=== PATIENT | male | born 1950 | race Caucasian/White ===

== ENCOUNTER 2020-09-21 10:44 | Observation (INO) | payer OTHER, SELFPAY ==
[2020-09-21] VITALS (9 sets, daily range): BP systolic 127–148; BP diastolic 80–94; PULSE 70–96; RESP 14–20; TEMP 36.5–36.7; O2SAT 94–99; BMI 26.4
--- NOTE | 2020-09-21 | CA_ITS ---
APPROVED REPORT Exam: Pharmacologic Technologist: Ene Zapata Ht: 6 ft 0 in Wt: 195 lbs BSA: 2.11 m2 HR: 71 bpm BP: 138/80 mmHg Indications: Syncope Medical History Medications: Amlodipine,,,,, Omeprazole,,,,, Ropinirole,,,,, TAMSULOSIN,,,,, PriMIDONE,,,,, Stress Test Details Test: LEXISCAN HR Resting HR: 78 bpm Max Heart Rate (APMHR): 152 bpm Max HR Achieved: 105 bpm Target HR (85% APMHR): 129 bpm % of APMHR: 69 Recovery HR: 88 bpm BP Resting BP: 138.0/80.0 mmHg Max BP: 140.0/72.0 mmHg Recovery BP: 136.0/72.0 mmHg ECG Clinical Reason for Termination: Completed Protocol Exercise duration: 04:00 min Highest Stage Achieved: Exercise capacity: 1.0 METs Stress ECG Conclusion Resting ECG: Normal sinus rhythm, right bundle branch block Symptoms: None Arrhythmias/Ectopy: Rare PVC, Frequent PAC's, atrial couplets and atrial bigeminy. ST-T Changes: < 1.[address] segment changes. Conclusion: Non-diagnostic lexiscan stress test. Patient received the infusion per protocol without chest pain. Rare PVC, frequent PAC's, atrial couplets and runs of atrial bigeminy noted. Less than 1.[address] segment changes noted during stress. See the nuclear report for further information. Test Summary REST . . . . . . . Resting REST 05:45 . . 78 . 138/ 80 . . Stage 1 . . . . . . . Myoview Injected Stage 1 01:00 . . 100 . . . . Stage 2 01:00 . . 96 . 133/ 75 . . Stage 3 01:00 . . 89 . 140/ 72 . . Stage 4 01:00 . . 88 . 129/ 75 . Stop exercise at 04:00 RECOVERY 01:00 . . 85 . 137/ 65 . . RECOVERY 02:00 . . 90 . 137/ 65 . . RECOVERY 03:00 . . 83 . 137/ 65 . . RECOVERY 04:00 . . 83 . 137/ 65 . . RECOVERY 04:10 . . 79 . 137/ 65 . . Electronically signed by : Sharad De Oliveira, 09/21/2020 20:16:35
--- NOTE | 2020-09-21 10:49 | ECG_ITS ---
APPROVED REPORT Exam: Resting ECG HR:82 bpm ECG Measurements Heart Rate 82 AXES FL 154 P 41 QRSd 136 QRS -35 QT 402 T 16 QTc 469 Conclusion Normal sinus rhythm Left axis deviation Right bundle branch block Moderate voltage criteria for LVH, may be normal variant Inferior infarct, age undetermined Abnormal ECG Electronically signed by : González Reynolds, 09/23/2020 07:51:03
--- NOTE | 2020-09-21 10:54 | XR_ITS ---
PROCEDURE: XR CHEST PORTABLE CLINICAL HISTORY: syncope COMPARISON: CT [facility] CT CHEST W/O CONTRAST from 09/02/2016 FINDINGS: The cardiomediastinal silhouette and pulmonary vascularity are within normal limits. There is a 10 mm noncalcified nodule in the left upper lobe. This was present on a previous chest CT and is consistent with a granuloma. The remaining lungs are clear. No acute bony abnormalities. IMPRESSION: Stable left upper lobe nodule. No change with no acute finding Dictated by: Vargas Alvarenga MD 09/21/2020 11:08 Vargas Alvarenga MD in [place] 09/21/2020 11:08
--- NOTE | 2020-09-21 10:56 | PC.NURSE ---
First EKG given to MD immediately and MD states he does not want to call any Alert at this time and wants to do a repeat EKG in 15 mins. he does not want to consult cardiology at this time.
--- NOTE | 2020-09-21 11:00 | PC.NURSE ---
MD now requests EKG to be sent to cardiology.
--- NOTE | 2020-09-21 11:01 | PC.NURSE ---
RT at bedside
--- NOTE | 2020-09-21 11:02 | PC.NURSE ---
Main here to assess pt
--- NOTE | 2020-09-21 11:03 | PC.NURSE ---
Main Nesbitt at bedside
--- NOTE | 2020-09-21 11:07 | CA_ITS ---
APPROVED REPORT EXAM: Comprehensive 2D, Doppler, and color-flow Echocardiogram Financial Director: Daiana He RDCS Ht: 5 ft 10 in Wt: 195lbs BSA: 2.07 BP: 148/94 mmHg Indications: SYNCOPE, Parkinson, GERD 2D Dimensions LVOT 2.28 cm (M/F) 1.5-2.5 M-Mode Dimensions RVDd 2.65 cm (0.9-2.6) LA Diam 3.87 cm (1.9-4.0) LVDd 5.66 cm (3.5-5.7) Ao Diam 3.55 cm (2.0-3.7) LVDs 3.77 cm (3.5-5.7) IVSd 0.76 cm (0.6-1.1) PWd 0.96 cm (0.6-1.1) EF (Teich) 61.40% FS 33.40% EDV (Teich) 157.50 mL ESV (Teich) 60.80 mL LV Diastology E Decel Time 220.00 (160-240 msec) E/A Ratio 0.71 MED E' 6.80 (< 7 cm/sec) E'/MED E' Ratio 8.00 (>14) LAT E' 5.70 (<10 cm/sec) E/LAT E' Ratio 9.54 (>14) Mitral Valve MV E Max Teofilo. 54.00 (40-130 cm/s) MV A Velocity 77.00 (40-130 cm/s) E/A Ratio 0.71 MV Decel. Time 220.00 (160-240 ms) MV PHT 64.00 ms Left Ventricle Left atrium is mildly enlarged, left ventricle is normal size, mild concentric left ventricular hypertrophy, visually estimated ejection fraction 55% with no regional wall motion abnormality, grade 1 diastolic dysfunction seen without tissue Doppler evidence of raise left atrial pressure. Right Ventricle Right atrium and right ventricle are normal size and contractility. Aortic Valve Aortic valve is minimally thickened and fibrosed, there is no aortic stenosis or aortic insufficiency. Mitral Valve Mitral valve is minimally thickened, there is mild mitral regurgitation. Tricuspid Valve Tricuspid valve is grossly normal, there is mild tricuspid regurgitation, tricuspid regurgitation jet velocity is inadequate for calculation of the right ventricular systolic pressure. Pulmonic Valve Pulmonic valve is poorly visualized. Great Vessels Aortic root is normal size. Pericardium No significant pericardial effusion noted. Conclusion 1. Mildly enlarged left atrium, normal left ventricular size, mild concentric left ventricular hypertrophy, visually estimated ejection fraction 55% with no regional wall motion abnormality. Grade 1 diastolic dysfunction seen without tissue Doppler evidence of raise left atrial pressure. 2. Thickened and calcified aortic valve without aortic stenosis or aortic insufficiency. 3. Mild mitral and tricuspid regurgitation. 4. No significant pericardial effusion noted. Electronically signed by : Sharad De Oliveira, 09/21/2020 18:55:54
--- NOTE | 2020-09-21 11:09 | PC.NURSE ---
New EKG obtained, given to Main Nesbitt that is at bedside, no new orders obtained.
[2020-09-21 11:15] LABS: Chloride 100 mmol/L (98-107); Potassium 4.1 mmoL/L (3.5-5.1); Sodium 138 mmol/L (136-145)
--- NOTE | 2020-09-21 11:15 | HMH.EDSYNC ---
ED Disposition Clinical Impression: Syncope Qualifiers: Syncope type: unspecified Qualified Code(s): R55 - Syncope and collapse Disposition: Admitted As Inpatient Condition on Discharge: Good Instructions: DI for Syncope in Adults (Fainting), DI for Syncope in Children (Fainting) Referrals: Jaime Adler MD [Primary Care Provider] - - Critical Care Critical Care Time: No Attestation: On 09/21/20, the high probability of a clinically significant, sudden or life threatening deterioration of the following system(s) required my full and direct attention, intervention and personal management. The time I documented below is in addition to time spent performing reported procedures but includes the following listed in this critical care notation. Medical Decision Making - Medical Records Medical records reviewed: Yes: I reviewed the patient's medical records. - Benjamin Inquiry Pt receiving controlled substance: No Vital Signs: 09/21/20 10:50 09/21/20 11:12 Temperature 98.1 F Temperature Source Oral Pulse Rate [Radial] 77 96 H Respiratory Rate 18 14 Blood Pressure [Right Arm] 128/81 148/94 H Blood Pressure Mean [Right Arm] 96 112 Blood Pressure Source [Right Arm] Automatic Cuff Automatic Cuff Blood Pressure Position [Right Arm] Sitting Sitting 02 Sat by Pulse Oximetry 96 97 Oxygen Delivery Method Room Air Room Air - Lab Data Lab Results 09/21/20 10:55: WBC 7.1, RBC 3.91 L, Hgb 13.8 L, Hct 36.2 L, MCV 92.7, MCH 35.4 H, MCHC 38.2 H, RDW 13.4, Plt Count 230, MPV 7.3 L, Neut % (Auto) 77.4, Lymph % (Auto) 15.5, Nash % (Auto) 5.3, Eos % (Auto) 1.3, Baso % (Auto) 0.6, Neut # (Auto) 5.5, Lymph # (Auto) 1.1, Nash # (Auto) 0.4, Eos # (Auto) 0.1, Baso # (Auto) 0.0 09/21/20 10:55: Sodium 138, Potassium 4.1, Chloride 100, Carbon Dioxide 29, Anion Gap 13.1, BUN 13, Creatinine 0.90, Estimated Creat Clear 88, Estimated GFR 84, Est GFR ( Amer) 102, Glucose 171 H, Calcium 9.6, Total Bilirubin 0.4, AST 25, ALT 25, Alkaline Phosphatase 49, Troponin I < 0.01, Total Protein 8.0, Albumin 4.7, Globulin 3.3 H, Albumin/Globulin Ratio 1.4 09/21/20 10:55: PT 11.0, INR 0.99, APTT 22.2 L Result diagrams: 09/21/20 10:55 09/21/20 10:55 Orders (Tests/Meds): ED MEDICATIONS Discontinued Medications Generic Name Dose Route Start Last Admin Trade Name Augustin PRN Reason Stop Dose Admin Aspirin 324 mg 09/21/20 11:00 09/21/20 11:02 Aspirin 81mg Chewable Tablet PO 09/21/20 11:01 324 mg ONCE ONE Administration ORDERS Category Date Time Status Troponin I Q3H Lab 09/21/20 14:00 Ordered Troponin I Q3H Lab 09/21/20 17:00 Ordered Medical Decision Narrative: 70-year-old male presenting after syncopal episode. Nontoxic, afebrile, hemodynamically stable, nonfocal, neuro intact, atraumatic on arrival. Asymptomatic on arrival. EKG showed left axis deviation, right bundle branch block but no evidence of acute ischemia. Cardiology was consulted immediately on patient's arrival and evaluate the patient in the ED and ordered an echo which was also negative for acute disease including wall motion abnormality or valvular disease. He appears to have a preserved ejection fraction. His initial troponin is undetectable. Blood cell count, glucose, electrolytes, transaminases are nonactionable. Chest x-ray is negative for acute disease. I spoke with the PCP who agreed to admit the patient other work-up and management and cardiology will consult. Patient remained stable in the ED. Syncope HPI - General Chief Complaint: Syncope Stated Complaint: Syncope Time Seen by Provider: 09/21/20 11:00 Mode of Arrival: Ambulatory Limitations: No Limitations Description of Symptoms (Recalled from ER Triage Doc. by RN): States while in the kitchen this morning he got sweaty and then passed out. He currently just feels off - History of Present Illness HPI narrative: This is a 70-year-old male with a history of Parkinson's diseas
--- NOTE | 2020-09-21 11:17 | PC.NURSE ---
Echo lab at bedside
[2020-09-21 11:18] LABS: Alanine Aminotransferase 25 U/L (12-78); Albumin Level 4.7 g/dl (3.5-5.0); Albumin/Globulin Ratio 1.4 (1.1-1.8); Alkaline Phosphatase 49 U/L (38-126); Anion Gap 13.1 mEq/L (5-15); Aspartate Amino Transferase 25 U/L (17-59); Bilirubin,Total 0.4 mg/dl (0.2-1.3); Blood Urea Nitrogen 13 mg/dl (9-20); Calcium 9.6 mg/dl (8.4-10.2); Carbon Dioxide 29 mmol/L (22.0-30.0); Creatinine Clearance Estimated 88 mL/min (50-200); Estimated Glomerular Filt Rate 84 ml/min (>60); GFR (African American) 102 ML/MIN (>60); Globulin 3.3 g/dL (1.3-3.2); Glucose 171 mg/dl (74-100)
[2020-09-21 11:28] LABS: Basophils % 0.6 % (0.1-2.0); Eosinophils # 0.1 K/mm3 (0.0-0.4); Eosinophils % 1.3 % (0.1-12.0); Hematocrit 36.2 % (42.0-52.0); Hemoglobin 13.8 g/dL (14.1-18.0); Lymphocytes # 1.1 K/mm3 (0.7-4.5); Lymphocytes % 15.5 % (10-50); Mean Corpuscular HGB Conc 38.2 g/dL (31.8-35.4); Mean Corpuscular Hemoglobin 35.4 pg (27.0-31.2); Mean Corpuscular Volume 92.7 fl (80-94); Mean Platelet Volume 7.3 fl (7.4-10.4); Monocytes # 0.4 K/mm3 (0.1-1.0); Monocytes % 5.3 % (1.7-9.3); Neutrophils # 5.5 K/mm3 (1.8-7.8); Neutrophils % 77.4 % (37.0-80.0); Platelet Count 230 K/mm3 (142-424); Red Blood Count 3.91 M/mm3 (4.60-6.20); Red Cell Distribution Width 13.4 % (11.5-17.5); White Blood Count 7.1 K/mm3 (4.8-10.8)
--- NOTE | 2020-09-21 11:31 | HMH.CNCARD ---
History of Present Illness Consult date: 09/21/20 Chief complaint: syncope Additional Medical History:: 1. Hypertension 2. Parkinson's disease 3. Bifascicular block by EKG, 09/21/2020 A. Syncopal episode, 09/21/2020 4. History of GERD History of present illness: This is a 70-year-old male with a history of Parkinson's disease and hypertension presenting after syncopal episode that occurred at approximately 8 AM. Patient states he was walking in the kitchen when he felt lightheaded, diaphoretic and that he was going to pass out and shortly thereafter passed out in his living room. No head strike or injuries. On arrival, patient is essentially asymptomatic. No fever, chills, cough, shortness of breath, chest pain, palpitations, focal weakness, numbness, tingling. This has happened before. The above per Dr. Alejandro in ER. No prior cardiac history. Denies history of tobacco use. He was recently started on Flomax approximately 4 to 6 weeks ago without difficulty. Patient has Parkinson's and has been on medication for over a year without problems. EKGs in the ER shows sinus rhythm, left axis deviation, right bundle branch block, moderate voltage criteria for LVH and possible inferior infarct. No prior EKGs for comparison and patient has no prior history of a bundle branch block. [facility] History Medical History: Reports:: Hypertension Denies:: Cancer, Diabetes Mellitus Type 1, Diabetes Mellitus Type 2, Internal Pacemaker, MRSA, Seizures *Have you ever received a pneumonia vaccine?: Yes *Have you received a flu vaccine this season?: Yes Other Surgeries: No: Pacemaker Amputation: No Fractures: No - *Social History Smoking Status: Never smoker Alcohol Intake: never *Occupational Status:: other Housing: house Household Members: spouse *Travel in the last 8 weeks: None Family Hx:: No significant family history Meds Home Medications Medication Instructions Recorded Confirmed Type Amlodipine Besylate [Norvasc 10mg 5 mg PO DAILY 11/08/19 09/21/20 History tablet] Omeprazole [Omeprazole 20mg 20 mg PO DAILY 11/08/19 09/21/20 History Capsule] Primidone [Mysoline 50mg tablet] 50 mg PO DAILY 09/21/20 09/21/20 History Ropinirole HCl [Ropinirole ER] 2 mg PO BID 09/21/20 09/21/20 History Allergies Allergy/AdvReac Type Severity Reaction Status Date / Time No Known Allergies Allergy Verified 11/08/19 07:32 Exam Vital signs and Labs for Last 24 Hours: Temp Pulse Resp BP Pulse Ox 98.1 F 96 H 14 148/94 H 97 09/21/20 10:50 09/21/20 11:12 09/21/20 11:12 09/21/20 11:12 09/21/20 11:12 Laboratory Results - last 24 hr 09/21/20 10:55: WBC 7.1, RBC 3.91 L, Hgb 13.8 L, Hct 36.2 L, MCV 92.7, MCH 35.4 H, MCHC 38.2 H, RDW 13.4, Plt Count 230, MPV 7.3 L, Neut % (Auto) 77.4, Lymph % (Auto) 15.5, Armstrong % (Auto) 5.3, Eos % (Auto) 1.3, Baso % (Auto) 0.6, Neut # (Auto) 5.5, Lymph # (Auto) 1.1, Armstrong # (Auto) 0.4, Eos # (Auto) 0.1, Baso # (Auto) 0.0 09/21/20 10:55: Sodium 138, Potassium 4.1, Chloride 100, Carbon Dioxide 29, Anion Gap 13.1, BUN 13, Creatinine 0.90, Estimated Creat Clear 88, Estimated GFR 84, Est GFR ( Amer) 102, Glucose 171 H, Calcium 9.6, Total Bilirubin 0.4, AST 25, ALT 25, Alkaline Phosphatase 49, Total Protein 8.0, Albumin 4.7, Globulin 3.3 H, Albumin/Globulin Ratio 1.4 I & O for Last 24 hours: Intake & Output 09/18/20 09/19/20 09/20/20 09/21/20 11:59 11:59 11:59 11:59 Weight 195 lb - Constitutional no acute distress - *Routine HEENT Exam Head: Present: normocephalic Eye: Present: EOMI, PERRL ENT: Present: mucous membranes moist - *Routine Neck Exam Present: supple. Absent: lymphadenopathy - *Routine Respiratory Exam Present: CTA bilaterally - *Routine Cardiovascular Exam Present: RRR - *Routine Abdominal Exam Present: soft, normoactive bowel sounds. Absent: tenderness - *Routine Extremities Exam Absent: cyanosis, clubbing, edema - *Routine Skin Exam
[2020-09-21 11:32] LABS: Activated Partial Thrombo Time 22.2 seconds (23.6-34.0); INR 0.99 (0.9-1.1); Troponin I < 0.01 ng/ml (0.00-0.034)
--- NOTE | 2020-09-21 11:36 | PC.NURSE ---
Calling pt's PCP at this time.
--- NOTE | 2020-09-21 11:37 | PC.NURSE ---
KIESHA SMITH speaking with Dr Reynolds at this time.
--- NOTE | 2020-09-21 11:42 | PC.NURSE ---
Dr Rees at bedside at this time.
--- NOTE | 2020-09-21 11:46 | NM_ITS ---
APPROVED REPORT Exam: Nuclear Stress Test Indication: Syncope, HTN Patient Location: Outpatient Stress Tech: Ene Zapata RI Tech:Sarah Arora, ARRT, RT (R)(N) Ht: 6 ft 0 in Wt: 190 lbs HR: 71 bpm BP: 138/80 mmHg BSA: 2.08 m2 History: Syncope, HTN Procedure: Patient received a 0.4 mg of intravenous Lexiscan, resting heart rate 71 bpm, resting blood pressure 138/80 mmHg, with Lexiscan maximum heart rate achived was 99 bpm which is Less than 85 % of the maximum predicted heart rate and blood pressure was 133/75 mmHg. With Lexiscan, patient denied any complaint of chest pain. Electrocardiogram Resting electrocardiogram showed sinus rhythm right ventricular conduction delay, with Lexiscan there is less than 1.[address] segment depression noted from the baseline EKG. The EKG portion of the Lexiscan Myoview is nondiagnostic. Cardiac Stress and Resting SPECT Images: Cardiac Stress and Resting SPECT images were obtained using technetium 99m Myoview 32.6 mCi stress and 10.23 mCi at rest. Gated SPECT for analysis of segmental wall motion and calculation of the ejection fraction also done. Cardiac stress and resting SPECT images show uniform myocardial activity without segmental perfusion abnormality, however there is transient ischemic dilatation of the left ventricle seen, raising the concerns for presence of balanced ischemia and multivessel coronary artery disease. Computer derived ejection fraction is 57% with no regional wall motion abnormality. Right ventricle is mildly enlarged with normal contractility. Conclusion: 1. The EKG portion of the Lexiscan Myoview is nondiagnostic. 2. No scintigraphic evidence of reversible ischemia seen, computer derived ejection fraction is 57% with no regional wall motion abnormality, however there is transient ischemic dilatation of the left ventricle seen, raising the concerns for presence of balanced ischemia or multivessel coronary artery disease. Right ventricle is mildly enlarged with normal contractility. 3. Abnormal Lexiscan Myoview study. Electronically signed by : Sharad De Oliveira, 09/21/2020 21:15:18
--- NOTE | 2020-09-21 12:17 | PC.NURSE ---
Gave report to Kathy on 2nd floor, notified pt was in stress test at this time and will be transported to 2nd floor when completed
--- NOTE | 2020-09-21 12:33 | HMH.PHAINT ---
HOME MEDICATION LIST COMPLETED USING LIST FROM HOME PHARMACY
[2020-09-21 13:01] LABS: Coronavirus 19 IgG Antibody Negative (Negative); Coronavirus 19 IgM Antibody Negative (Negative)
[2020-09-21 15:23] LABS: Troponin I < 0.01 ng/ml (0.00-0.034)
--- NOTE | 2020-09-21 16:00 | ECG_ITS ---
APPROVED REPORT Exam: Resting ECG HR:72 bpm ECG Measurements Heart Rate 72 AXES AK 160 P 41 QRSd 146 QRS -16 QT 434 T 12 QTc 475 Conclusion Sinus rhythm with fusion complexes and premature atrial complexes Right bundle branch block Abnormal ECG Electronically signed by : González Reynolds, 09/23/2020 07:50:56
--- NOTE | 2020-09-21 16:08 | PC.NURSE ---
Addendum entered by Kathy Brizuela RN 09/21/20 16:15: ER STATED NO CHANGE FROM PREVIOUS EKG Original Note: UPON READING TELEMETRY ALMOST APPEARED PATIENT COULD HAVE SOME ST ELEVATION SO EKG WAS OBTAINED AND TAKEN DOWN TO ER TO BE READ.
--- NOTE | 2020-09-21 17:14 | HMH.HP ---
*Admission Date: 09/21/20 *Chief complaint: Near syncope *History of present illness: This is a 70-year-old male with a history of Parkinson's disease and hypertension presenting after syncopal episode that occurred at approximately 8 AM. Patient states he was walking in the kitchen when he felt lightheaded, diaphoretic and that he was going to pass out and shortly thereafter passed out in his living room. No head strike or injuries. On arrival, patient is essentially asymptomatic. No fever, chills, cough, shortness of breath, chest pain, palpitations, focal weakness, numbness, tingling. This has happened before. The above per Dr. Alejandro in ER. No prior cardiac history. Denies history of tobacco use. He was recently started on Flomax approximately 4 to 6 weeks ago without difficulty. Patient has Parkinson's and has been on medication for over a year without problems. EKGs in the ER shows sinus rhythm, left axis deviation, right bundle branch block, moderate voltage criteria for LVH and possible inferior infarct. No prior EKGs for comparison and patient has no prior history of a bundle branch block. Above Per cardiology. Patient is not sure he actually passed out, does note that he was very fuzzy headed and had tunnel vision. Denies any kind of mechanical trip, denies chest pain. Denies palpitations. [facility] History I have reviewed the patient's past medical history: Yes Medical History: Reports:: Gastroesophageal Reflux Disease(GERD), Hypertension Denies:: Cancer, Diabetes Mellitus Type 1, Diabetes Mellitus Type 2, Internal Pacemaker, MRSA, Seizures *Have you ever received a pneumonia vaccine?: Yes *Have you received a flu vaccine this season?: Yes Comment:: Parkinson's disease, follows with Dr. Vela in [place] Laterality Cases: Bilateral: Tonsillectomy Other Surgeries: No: Pacemaker Amputation: No Fractures: No - *Social History Last grade of school completed: Advanced degree Smoking Status: Never smoker Alcohol Intake: never *Occupational Status:: retired Housing: house Household Members: spouse *Travel in the last 8 weeks: None Family Hx:: Cancer, Heart Attack, Hyperlipidemia, Hypertension Review of Systems - Review of Systems Review of systems:: pertinent systems reviewed and negative unless documented below - *Neurologic Reports dizziness, Reports weakness Meds Home Medications Medication Instructions Recorded Confirmed Type Amlodipine Besylate [Norvasc 10mg 5 mg PO DAILY 11/08/19 09/21/20 History tablet] Omeprazole [Omeprazole 20mg 20 mg PO DAILY 11/08/19 09/21/20 History Capsule] Primidone [Mysoline 50mg tablet] 50 mg PO BID 09/21/20 09/21/20 History Ropinirole HCl [Ropinirole ER] 2 mg PO BID 09/21/20 09/21/20 History Tamsulosin HCl [Flomax 0.4mg 0.4 mg PO HS 09/21/20 09/21/20 History capsule] Allergies Allergy/AdvReac Type Severity Reaction Status Date / Time No Known Allergies Allergy Verified 11/08/19 07:32 Exam Vital signs and Labs for Last 24 Hours: Temp Pulse Resp BP Pulse Ox 98.0 F 80 18 142/81 H 98 09/21/20 16:00 09/21/20 16:00 09/21/20 16:00 09/21/20 16:00 09/21/20 16:00 Laboratory Results - last 24 hr 09/21/20 10:55: WBC 7.1, RBC 3.91 L, Hgb 13.8 L, Hct 36.2 L, MCV 92.7, MCH 35.4 H, MCHC 38.2 H, RDW 13.4, Plt Count 230, MPV 7.3 L, Neut % (Auto) 77.4, Lymph % (Auto) 15.5, [place]ah % (Auto) 5.3, Eos % (Auto) 1.3, Baso % (Auto) 0.6, Neut # (Auto) 5.5, Lymph # (Auto) 1.1, [place]ah # (Auto) 0.4, Eos # (Auto) 0.1, Baso # (Auto) 0.0 09/21/20 10:55: Sodium 138, Potassium 4.1, Chloride 100, Carbon Dioxide 29, Anion Gap 13.1, BUN 13, Creatinine 0.90, Estimated Creat Clear 88, Estimated GFR 84, Est GFR ( Amer) 102, Glucose 171 H, Calcium 9.6, Total Bilirubin 0.4, AST 25, ALT 25, Alkaline Phosphatase 49, Troponin I < 0.01, Total Protein 8.0, Albumin 4.7, Globulin 3.3 H, Albumin/Globulin Ratio 1.4 10/26/20 10:55: PT 11.0, INR 0.99, APTT 22.2 L 09/21/20 11:59:
[2020-09-21 17:45] LABS: Troponin I < 0.01 ng/ml (0.00-0.034)
--- NOTE | 2020-09-21 18:44 | PC.NURSE ---
patient has done well. no complaints. vitals have been stable will continue to monitor.
--- NOTE | 2020-09-21 19:12 | PC.NURSE ---
report given to anna
[2020-09-22] VITALS (16 sets, daily range): BP systolic 113–155; BP diastolic 59–98; PULSE 65–94; RESP 14–20; TEMP 36.5–36.9; O2SAT 91–98; BMI 26.4
--- NOTE | 2020-09-22 | IR_ITS ---
APPROVED REPORT Patient Location: Inpatient Rehabilitation Attendant: BOB Ratliff RT (R) PROCEDURES Left heart catheterization Left ventriculogram Selective coronary angiogram Drug-eluting stent deployment to the mid LAD INDICATION High risk abnormal Myoview, Coronary artery disease, Cardiac syncope Informed consent was obtained prior to the procedure. COMPLICATIONS none Estimated Blood Loss: less than 10 mls TECHNIQUE One percent lidocaine used to anesthetize the right anterior aspect of the wrist. The right radial artery was accessed via the Seldinger technique. A 6 [place] sheath was placed in the right radial artery. 2.5 mg of verapamil, 800 mcg of nitroglycerin, 1mg Lidocaine and 5000 U Heparin were given through the arterial sheath. The [place] catheter was also used to perform left heart catheterization, left ventriculogram and selective coronary angiogram. At the end of the diagnostic angiogram additional therapeutic heparin was administered giving a therapeutic ACT. A BMW wire was placed distally and a 3.5 x 22 mm resolute celso stent was deployed at 15 natasha reducing the stenosis. A 3.5 x 6 mm noncompliant balloon was deployed at 24 natasah up and down the stent in order to post dilate. At the end of the procedure excellent angiographic results were obtained with MICHELLE-3 flow before and after the procedure. At the end of the procedure the apparatus was removed the sheath was removed good hemostasis was achieved using TR banding patient was transferred to the postop holding area in stable condition ANGIOGRAPHIC RESULTS The left main artery Has an ostial 10% stenosis The left anterior descending artery Has an ostial 10% stenosis followed by mild proximal vascular ectasia which extends into the mid segment. The mid vessel then has a 50% stenosis followed by a hazy concentric 70% stenosis. Distally in the LAD as it wraps the apex there is a 40% eccentric stenosis The circumflex artery Gives rise to a large caliber ramus intermedius which supplies a large amount of myocardium which has mid vessel 20% stenoses. The true circumflex artery has a proximal 30 to 40% stenosis followed by mid vessel 30% stenosis. Terminal obtuse marginal artery has proximal 30% stenoses The right coronary artery Is a dominant vessel and has mild 10% luminal irregularities The HURTADO ventriculogram reveals Normal at 65% The left ventricular end-diastolic pressure 10 mmHg IMPRESSION Severe mid LAD stenosis as described above with successful percutaneous revascularization reducing the severe tandem lesions to 0% with 1 drug-eluting stent in a contiguous manner Mild vascular ectasia in the proximal to mid LAD as described above which is clinically insignificant at this time Normal ejection fraction Normal left ventricular end-diastolic pressure PLAN 1. Effient 10 mg daily combined with aspirin 81 mg daily 2. LDL less than 55 3. Cardiac rehabilitation 4. Avoidance of tobacco products 5. Risk factor modification Electronically signed by : Fran Rees, 09/22/2020 10:56:20
--- NOTE | 2020-09-22 04:00 | PC.NURSE ---
Pt is A&Ox4 and has ambulated to the BR a few times this shift and tolerated well. Pt has denied any pain, SOB, dyspnea, or dizziness/lightheadedness t/o shift. Pt slept well t/o the night. Lungs CTA. No edema noted and peripheral pulses +2. Pt denies any nausea. ABD is soft, non-tender, and active BS noted. NSR with occ PAC/PVC noted on tele. VSS, call light within reach, will continue to monitor.
[2020-09-22 07:28] LABS: Chloride 102 mmol/L (98-107); Sodium 137 mmol/L (136-145)
[2020-09-22 07:29] LABS: Potassium 4.2 mmoL/L (3.5-5.1)
[2020-09-22 07:30] LABS: Basophils # 0.1 K/mm3 (0-0.2); Eosinophils # 0.3 K/mm3 (0.0-0.4); Eosinophils % 3.7 % (0.1-12.0); Hematocrit 43.7 % (42.0-52.0); Hemoglobin 14.8 g/dL (14.1-18.0); Lymphocytes # 2.1 K/mm3 (0.7-4.5); Lymphocytes % 29.2 % (10-50); Mean Corpuscular HGB Conc 33.9 g/dL (31.8-35.4); Mean Corpuscular Hemoglobin 30.5 pg (27.0-31.2); Mean Corpuscular Volume 89.9 fl (80-94); Mean Platelet Volume 7.1 fl (7.4-10.4); Monocytes # 0.5 K/mm3 (0.1-1.0); Monocytes % 6.5 % (1.7-9.3); Neutrophils # 4.3 K/mm3 (1.8-7.8); Neutrophils % 59.5 % (37.0-80.0); Platelet Count 300 K/mm3 (142-424); Red Blood Count 4.86 M/mm3 (4.60-6.20); Red Cell Distribution Width 13.2 % (11.5-17.5); White Blood Count 7.3 K/mm3 (4.8-10.8)
[2020-09-22 07:31] LABS: Alanine Aminotransferase 27 U/L (12-78); Albumin Level 4.4 g/dl (3.5-5.0); Albumin/Globulin Ratio 1.4 (1.1-1.8); Alkaline Phosphatase 47 U/L (38-126); Anion Gap 14.2 mEq/L (5-15); Aspartate Amino Transferase 25 U/L (17-59); Bilirubin,Total 0.5 mg/dl (0.2-1.3); Blood Urea Nitrogen 10 mg/dl (9-20); Carbon Dioxide 25 mmol/L (22.0-30.0); Creatinine Clearance Estimated 88 mL/min (50-200); Estimated Glomerular Filt Rate 84 ml/min (>60); GFR (African American) 102 ML/MIN (>60); Globulin 3.2 g/dL (1.3-3.2); Total Protein,Serum 7.6 g/dl (6.3-8.2)
[2020-09-22 07:32] LABS: Calcium 9.2 mg/dl (8.4-10.2); Glucose 136 mg/dl (74-100)
--- NOTE | 2020-09-22 07:38 | HMH.PNCARD ---
Subjective Date: 09/22/20 Time: 07:38 Principal diagnosis: Syncope Interval history: 70-year-old white male in bed eating breakfast in no acute distress. Denies any chest pain, pressure or tightness overnight. Review of telemetry shows no significant arrhythmias with occasional PACs and PVCs. Results of Lexiscan Myoview reviewed with patient showing evidence of transient ischemic dilatation with normal ejection fraction. Discussed recommendation for cardiac catheterization and patient is agreeable. Patient denies any recurrent episodes of near syncope or syncope overnight. Exam Vital signs and Labs for Last 24 Hours: Temp Pulse Resp BP Pulse Ox 98.5 F 82 18 133/93 H 96 09/22/20 07:15 09/22/20 07:15 09/22/20 07:15 09/22/20 07:15 09/22/20 07:15 Laboratory Results - last 24 hr 09/21/20 10:55: WBC 7.1, RBC 3.91 L, Hgb 13.8 L, Hct 36.2 L, MCV 92.7, MCH 35.4 H, MCHC 38.2 H, RDW 13.4, Plt Count 230, MPV 7.3 L, Neut % (Auto) 77.4, Lymph % (Auto) 15.5, [place] % (Auto) 5.3, Eos % (Auto) 1.3, Baso % (Auto) 0.6, Neut # (Auto) 5.5, Lymph # (Auto) 1.1, [place] # (Auto) 0.4, Eos # (Auto) 0.1, Baso # (Auto) 0.0 09/21/20 10:55: Sodium 138, Potassium 4.1, Chloride 100, Carbon Dioxide 29, Anion Gap 13.1, BUN 13, Creatinine 0.90, Estimated Creat Clear 88, Estimated GFR 84, Est GFR ( Amer) 102, Glucose 171 H, Calcium 9.6, Total Bilirubin 0.4, AST 25, ALT 25, Alkaline Phosphatase 49, Troponin I < 0.01, Total Protein 8.0, Albumin 4.7, Globulin 3.3 H, Albumin/Globulin Ratio 1.4 09/21/20 10:55: PT 11.0, INR 0.99, APTT 22.2 L 09/21/20 11:59: SARS-CoV-2 IgG Ab (Rapid) Negative, SARS-CoV-2 IgM Ab (Rapid) Negative 09/21/20 14:50: Troponin I < 0.01 09/21/20 15:05: Troponin I < 0.01 09/22/20 07:03: WBC 7.3, RBC 4.86, Hgb 14.8, Hct 43.7, MCV 89.9, MCH 30.5, MCHC 33.9, RDW 13.2, Plt Count 300 D, MPV 7.1 L, Neut % (Auto) 59.5, Lymph % (Auto) 29.2, [place] % (Auto) 6.5, Eos % (Auto) 3.7, Baso % (Auto) 1.0, Neut # (Auto) 4.3, Lymph # (Auto) 2.1, [place] # (Auto) 0.5, Eos # (Auto) 0.3, Baso # (Auto) 0.1 09/22/20 07:03: Sodium 137, Potassium 4.2, Chloride 102, Carbon Dioxide 25, Anion Gap 14.2, BUN 10, Creatinine 0.90, Estimated Creat Clear 88, Estimated GFR 84, Est GFR ( Amer) 102, Glucose 136 H D, Calcium 9.2, Total Bilirubin 0.5, AST 25, ALT 27, Alkaline Phosphatase 47, Total Protein 7.6, Albumin 4.4, Globulin 3.2, Albumin/Globulin Ratio 1.4 I & O for Last 24 hours: Intake & Output 09/19/20 09/20/20 09/21/20 09/22/20 11:59 11:59 11:59 11:59 Intake Total 350 / 350 Balance 350 / 350 Weight 195 lb 195 lb - *Routine HEENT Exam Head: Present: normocephalic Eye: Present: EOMI, PERRL ENT: Present: mucous membranes moist - *Routine Respiratory Exam Present: CTA bilaterally - *Routine Cardiovascular Exam Present: RRR - *Routine Extremities Exam Absent: cyanosis, clubbing, edema - *Routine Neurological Exam Present: alert, oriented X3 Progress Note: A&P (1) Syncope Status: Acute (2) Hypertension Status: Acute (3) Parkinsons disease Status: Acute (4) GERD without esophagitis Status: Acute Assessment and Plan for All Diagnoses:: 1. Abnormal stress test with evidence of transient ischemic dilatation. Recommendation for cardiac catheterization to evaluate for balanced ischemia/three-vessel disease. If cardiac catheterization is without significant blockages then higher likelihood that patient needs pacemaker due to syncope and bifascicular block. 2. Episode of syncope with abnormal EKG with bifascicular block. 3. Parkinson's disease 4. Hypertension with echocardiogram this admission showing preserved ejection fraction with mild hypertensive heart disease and grade 1 diastolic dysfunction. Pending results of cardiac catheterization will start blood pressure medication. [facility] Pre-cath Criteria Clinical evaluation and indication for coronary angiography: syncope Clinical risk factors:: HTN How many antiang
--- NOTE | 2020-09-22 11:22 | HMH.DCSUM ---
General - General Admission date:: 09/21/20 Discharge date: 09/22/20 HPI HPI: This is a 70-year-old male with a history of Parkinson's disease and hypertension presenting after syncopal episode that occurred at approximately 8 AM. Patient states he was walking in the kitchen when he felt lightheaded, diaphoretic and that he was going to pass out and shortly thereafter passed out in his living room. No head strike or injuries. On arrival, patient is essentially asymptomatic. No fever, chills, cough, shortness of breath, chest pain, palpitations, focal weakness, numbness, tingling. This has happened before. The above per Dr. Alejandro in ER. No prior cardiac history. Denies history of tobacco use. He was recently started on Flomax approximately 4 to 6 weeks ago without difficulty. Patient has Parkinson's and has been on medication for over a year without problems. EKGs in the ER shows sinus rhythm, left axis deviation, right bundle branch block, moderate voltage criteria for LVH and possible inferior infarct. No prior EKGs for comparison and patient has no prior history of a bundle branch block. Above Per cardiology. Patient is not sure he actually passed out, does note that he was very fuzzy headed and had tunnel vision. Denies any kind of mechanical trip, denies chest pain. Denies palpitations. Hospital Course Hospital Course: 70-year-old male admitted for syncopal event. Noted to have bifascicular block. Concern for third-degree. Monitored on telemetry overnight. Stress test performed with inconclusive results. Decision made to perform left heart cath. Cath identified tandem LAD stenoses. One drug-eluting stent was placed with resumption of normal flow. Recommendations for initiation of atorvastatin, aspirin, and Effient. Blood pressure regimen switched to irbesartan from amlodipine. Remained stable through duration of hospitalization with no further episodes of syncopal events. No chest pain, shortness of breath, GI symptoms on day of discharge. Plan to follow-up with cardiology and primary care in the coming weeks. No pacemaker at this time, reevaluate if has further syncopal events. Medically stable for discharge home Objective Vital signs: Temp Pulse Resp BP Pulse Ox 98.5 F 70 20 135/81 95 09/22/20 07:15 09/22/20 11:15 09/22/20 11:15 09/22/20 11:15 09/22/20 11:15 no acute distress - *Routine HEENT Exam Head: Present: normocephalic Eye: Present: EOMI, PERRL ENT: Present: mucous membranes moist - *Routine Neck Exam Present: supple - *Routine Respiratory Exam Present: CTA bilaterally - *Routine Cardiovascular Exam Present: RRR - *Routine Abdominal Exam Present: soft, normoactive bowel sounds. Absent: tenderness - *Routine Extremities Exam Absent: cyanosis, clubbing, edema - *Routine Skin Exam Present: warm. Absent: rash - *Routine Neurological Exam Present: tremors (at baseline) Results Labs on day of discharge: Labs from last 24 hours 09/22/20 09/22/20 09/21/20 07:03 07:03 15:05 WBC 7.3 RBC 4.86 Hgb 14.8 Hct 43.7 MCV 89.9 MCH 30.5 MCHC 33.9 RDW 13.2 Plt Count 300 D MPV 7.1 L Neut % (Auto) 59.5 Lymph % (Auto) 29.2 [place] % (Auto) 6.5 Eos % (Auto) 3.7 Baso % (Auto) 1.0 Neut # (Auto) 4.3 Lymph # (Auto) 2.1 [place] # (Auto) 0.5 Eos # (Auto) 0.3 Baso # (Auto) 0.1 PT INR APTT Sodium 137 Potassium 4.2 Chloride 102 Carbon Dioxide 25 Anion Gap 14.2 BUN 10 Creatinine 0.90 Estimated Creat Clear 88 Estimated GFR 84 Est GFR ( Amer) 102 Glucose 136 H D Calcium 9.2 Total Bilirubin 0.5 AST 25 ALT 27 Alkaline Phosphatase 47 Troponin I < 0.01 Total Protein 7.6 Albumin 4.4 Globulin 3.2 Albumin/Globulin Ratio 1.4 SARS-CoV-2 IgG Ab (Rapid) SARS-CoV-2 IgM Ab (Rapid) 09/21/20 09/21/20 09/21/20 14:5
--- NOTE | 2020-09-22 13:28 | HMH.PHACLD ---
Addendum entered and electronically signed by Jesus Montoya PharmD 09/22/20 13:30: PER MD, PATIENT STOPPING AMLODIPINE. THIS WAS CONVEYED TO PATIENT. Original Note: Isael He has received discharge medication counseling on the following medications: PATIENT IS BEING DISCHARGED ON ASPIRIN 81 MG DAILY, ATORVASTATIN 40 MG HS, IRBESARTAN 75 MG DAILY, AND PRASUGREL 10 MG DAILY. CLARA VALDEZ WAS CONTACTED ABOUT BETA ANNI. PATIENT IS NOT TO START ONE AT THIS TIME.
[2020-09-22 14:01] LABS: CATHL Activated Clotting Time 382 SEC (74-125)
== END 2020-09-22 15:00 | disposition home or self-care (01) ==
LOC: ER 11:48 → 2ND 12:49
PROVIDERS: Internal Medicine; Admitting Provider Internal Medicine Adolescent Medicine; Emergency Provider Physician Assistant; PCP Internal Medicine Adolescent Medicine; Visit Provider Internal Medicine Adolescent Medicine
DX: I25.10 Atherosclerotic heart disease of native coronary artery without angina pectoris (principal); I10 Essential (primary) hypertension; K21.9 Gastro-esophageal reflux disease without esophagitis; G20 Parkinson's disease; R55 Syncope and collapse; Z79.899 Other long term (current) drug therapy
CPT/HCPCS: 36415; 71045; 78452; 80053; 84484; 85025; 85347; 85610; 85730; 86328; 92928; 93005; 93017; 93306; 93458; 99152; 99153; 99281; A9502; C1725; C1769; C9600; G0378; J1644; J2785; Q9967

== ENCOUNTER 2020-10-28 08:31 | Observation (INO) | payer OTHER, MEDICAID, SELFPAY ==
[2020-10-28] VITALS (11 sets, daily range): BP systolic 102–135; BP diastolic 67–86; PULSE 61–90; RESP 16–20; TEMP 36.6–36.9; O2SAT 94–99; BMI 27.9; BMI 26.5
--- NOTE | 2020-10-28 08:26 | ECG_ITS ---
APPROVED REPORT Exam: Resting ECG HR:61 bpm ECG Measurements Heart Rate 61 AXES TX 170 P 52 QRSd 138 QRS -9 QT 454 T 19 QTc 457 Conclusion Normal sinus rhythm Right bundle branch block Abnormal ECG Electronically signed by : González Reynolds, 10/30/2020 10:22:56
[2020-10-28 08:48] LABS: Basophils # 0.1 K/mm3 (0-0.2); Eosinophils # 0.3 K/mm3 (0.0-0.4); Eosinophils % 3.5 % (0.1-12.0); Hemoglobin 14.3 g/dL (14.1-18.0); Lymphocytes # 2.6 K/mm3 (0.7-4.5); Lymphocytes % 31.4 % (10-50); Mean Corpuscular HGB Conc 33.2 g/dL (31.8-35.4); Mean Corpuscular Hemoglobin 30.8 pg (27.0-31.2); Mean Corpuscular Volume 92.8 fl (80-94); Mean Platelet Volume 7.5 fl (7.4-10.4); Monocytes # 0.5 K/mm3 (0.1-1.0); Monocytes % 5.7 % (1.7-9.3); Neutrophils # 4.8 K/mm3 (1.8-7.8); Neutrophils % 58.5 % (37.0-80.0); Platelet Count 259 K/mm3 (142-424); Red Blood Count 4.63 M/mm3 (4.60-6.20); White Blood Count 8.3 K/mm3 (4.8-10.8)
[2020-10-28 08:50] LABS: Chloride 101 mmol/L (98-107); Sodium 134 mmol/L (136-145)
[2020-10-28 08:51] LABS: Potassium 3.8 mmoL/L (3.5-5.1)
--- NOTE | 2020-10-28 08:51 | HMH.EDGENADL ---
ED Disposition Clinical Impression: Syncope, GERD without esophagitis CAD (coronary artery disease), [place] coronary artery Qualifiers: [place] vs. transplanted heart: [place] heart Associated angina: without angina Qualified Code(s): I25.10 - Atherosclerotic heart disease of [place] coronary artery without angina pectoris Disposition: Admitted As Inpatient Condition on Discharge: Good Instructions: DI for Syncope in Adults (Fainting), DI for Syncope in Children (Fainting) Referrals: PCP,No [Non-Staff] - - Critical Care Critical Care Time: No Attestation: On 10/28/20, the high probability of a clinically significant, sudden or life threatening deterioration of the following system(s) required my full and direct attention, intervention and personal management. The time I documented below is in addition to time spent performing reported procedures but includes the following listed in this critical care notation. Medical Decision Making - Medical Records Medical records reviewed: Yes: I reviewed the patient's medical records. - Benjamin Inquiry Pt receiving controlled substance: No Vital Signs: 10/28/20 08:31 10/28/20 08:43 10/28/20 09:45 Temperature 98.1 F Temperature Source Oral Pulse Rate [Left Radial] 64 61 69 Respiratory Rate 16 16 18 Blood Pressure [Right Arm] 112/69 102/67 L 111/72 Blood Pressure Mean [Right Arm] 83 78 85 Blood Pressure Source [Right Arm] Automatic Cuff Automatic Cuff Automatic Cuff Blood Pressure Position [Right Arm] Sitting Supine Sitting 02 Sat by Pulse Oximetry 94 L 96 96 Oxygen Delivery Method Room Air Room Air Room Air 10/28/20 10:00 10/28/20 10:29 10/28/20 11:00 Temperature Temperature Source Pulse Rate [Left Radial] 73 71 66 Respiratory Rate 20 18 20 Blood Pressure [Right Arm] 121/71 104/71 L 128/78 Blood Pressure Mean [Right Arm] 87 82 94 Blood Pressure Source [Right Arm] Automatic Cuff Automatic Cuff Automatic Cuff Blood Pressure Position [Right Arm] Sitting Sitting Sitting 02 Sat by Pulse Oximetry 95 99 96 Oxygen Delivery Method Room Air Room Air Room Air - Lab Data Lab results reviewed: Yes: I reviewed the patient's lab results. Lab Results 10/28/20 08:35: WBC 8.3, RBC 4.63, Hgb 14.3, Hct 43.0, MCV 92.8, MCH 30.8, MCHC 33.2, RDW 13.0, Plt Count 259, MPV 7.5, Neut % (Auto) 58.5, Lymph % (Auto) 31.4, [place] % (Auto) 5.7, Eos % (Auto) 3.5, Baso % (Auto) 1.0, Neut # (Auto) 4.8, Lymph # (Auto) 2.6, [place] # (Auto) 0.5, Eos # (Auto) 0.3, Baso # (Auto) 0.1 10/28/20 08:35: Sodium 134 L, Potassium 3.8, Chloride 101, Carbon Dioxide 25, Anion Gap 11.8, BUN 13, Creatinine 0.90, Estimated Creat Clear 88, Estimated GFR 84, Est GFR ( Amer) 102, Glucose 190 H, Calcium 9.0 10/28/20 08:35: Magnesium 2.2, Troponin I < 0.01 10/28/20 08:35: D-Dimer 0.52 10/28/20 10:05: SARS-CoV-2 IgG Ab (Rapid) Negative, SARS-CoV-2 IgM Ab (Rapid) Negative Result diagrams: 10/28/20 08:35 10/28/20 08:35 Orders (Tests/Meds): ORDERS Category Date Time Status Consult to Cardiology [CONS] Routine Cons 10/28/20 10:06 Active Troponin I Q3H Lab 10/28/20 12:15 Received Troponin I Q3H Lab 10/28/20 14:45 Ordered Medical Decision Narrative: Patient arrived awake alert, no acute distress, his vital signs were normal and no events on telemetry monitoring. Stat IV obtained and troponin was negative, atypical symptoms for ACS. Atypical symptoms for PTE, low guestalt for this and d-dimer was 0.52, thus low risk per YEARS criteria and age adjusted d-dimer rules. Atypical for dissection or other stroke and normal neurological exam. Called Dr Alvarado and Alana Baig responded and will evaluate him. There is discussion of pacemaker and cardiac monitoring in the past. Patient evaluated by cardiology and the recommendation is admission for telemetry monitoring and evaluation for pacemaker tomorrow. Patient to be admitted to hospital for further work-up.all questions have been answered. General
[2020-10-28 08:53] LABS: Anion Gap 11.8 mEq/L (5-15); Blood Urea Nitrogen 13 mg/dl (9-20); Carbon Dioxide 25 mmol/L (22.0-30.0); Creatinine Clearance Estimated 88 mL/min (50-200); Estimated Glomerular Filt Rate 84 ml/min (>60); GFR (African American) 102 ML/MIN (>60)
[2020-10-28 08:54] LABS: Glucose 190 mg/dl (74-100); Magnesium 2.2 mg/dl (1.6-2.3)
[2020-10-28 09:07] LABS: Troponin I < 0.01 ng/ml (0.00-0.034)
[2020-10-28 09:09] LABS: D-Dimer 0.52 ug/mL (0.15-8.0)
--- NOTE | 2020-10-28 09:29 | PC.NURSE ---
paged dr mackey office, troy is rounding upstsairs she will call or come see pt when back in office.
--- NOTE | 2020-10-28 09:45 | PC.NURSE ---
KIESHA SMITH speaking with ANH Candelaria
--- NOTE | 2020-10-28 11:11 | PC.NURSE ---
KIESHA SMITH spoke with Dr. Reynolds at this time.
--- NOTE | 2020-10-28 11:13 | PC.NURSE ---
notified care management of admission, spoke with
--- NOTE | 2020-10-28 11:15 | PC.NURSE ---
Addendum entered by Jennifer Mares RN 10/28/20 11:17: pt reports his medications have not changed since his last visit to cardiology in September, states he does not know the names of his medications but they have not changed. Will notify ER MD and primary receiving nurse on second floor of this. Pt states his is going to still bring his list from home to confirm medications for sure. Original Note: pt is going to bring his medication list back, she has went to home to get pt some clothes
--- NOTE | 2020-10-28 11:20 | PC.NURSE ---
notified lab of new orders on pt, spoke with shakir
--- NOTE | 2020-10-28 11:37 | HMH.CNCARD ---
History of Present Illness Consult date: 10/28/20 Requesting physician: Gabe Irvin Consult reason: known to you Chief complaint: syncope History of present illness: This is a 70-year-old white gentleman who presented to the emergency department with complaints of syncope. The patient states that he and his were on his way here to [facility] for an appointment with Dr. Rees in the cardiology clinic. While he was riding in the passenger seat of the car on the way here he began to feel flushed and did not feel well. His states that when she pulled into the parking lot he suddenly passed out and went unresponsive. She states that he got really clammy and turned crespo. She ran into the hospital to get help and when she came back out to the car she was able to shake him awake. She states that he lost consciousness. He had no convulsions. He did not urinate or defecate on himself. He denies any chest pain or pressure. He denies any shortness of breath or edema. He denies any fever, chills, nausea, vomiting, diarrhea, PND or orthopnea. He was admitted in August for similar symptoms. At that time the patient had a right bundle branch block as well as a bifascicular block. He was being worked up for possible pacemaker implant but after having a left cardiac catheterization where he needed stenting to his LAD the pacemaker placement was canceled to see if his symptoms improved. The patient has had recurrent syncope in the setting of right bundle branch block and a bifascicular block. [facility] History I have reviewed the patient's past medical history: Yes Medical History: Reports:: Coronary Artery Disease, Diabetes Mellitus Type 2, Gastroesophageal Reflux Disease(GERD), Hypertension Denies:: Cancer, Diabetes Mellitus Type 1, Internal Pacemaker, MRSA, Seizures *Have you ever received a pneumonia vaccine?: Yes *Have you received a flu vaccine this season?: Yes Laterality Cases: Bilateral: Tonsillectomy Other Surgeries: Yes: Cardiac Catheterization, Coronary Stent. No: Pacemaker Amputation: No Fractures: No - *Social History Smoking Status: Never smoker Alcohol Intake: former Alcohol Intake Frequency:: holidays/special occasions only Substance Use Type: denies use *Occupational Status:: other Housing: house Household Members: spouse *Travel in the last 8 weeks: None Family Hx:: Cancer, Heart Attack, Hyperlipidemia, Hypertension, Coronary Artery Disease Meds Home Medications Medication Instructions Recorded Confirmed Type Omeprazole [Omeprazole 20mg 20 mg PO DAILY 11/08/19 10/28/20 History Capsule] Primidone [Mysoline 50mg tablet] 50 mg PO BID 09/21/20 10/28/20 History Ropinirole HCl [Ropinirole ER] 2 mg PO BID 09/21/20 10/28/20 History Tamsulosin HCl [Flomax 0.4mg 0.4 mg PO HS 09/21/20 10/28/20 History capsule] Aspirin [Aspirin 81mg EC Tab] 81 mg PO DAILY 10/28/20 10/28/20 History Atorvastatin Calcium [Lipitor 40mg 40 mg PO HS 10/28/20 10/28/20 History Tablet*] Irbesartan [Avapro 75mg 75 mg PO DAILY 10/28/20 10/28/20 History tablet] Prasugrel HCl [Effient 10mg tablet] 10 mg PO DAILY 10/28/20 10/28/20 History Allergies Allergy/AdvReac Type Severity Reaction Status Date / Time No Known Allergies Allergy Verified 10/28/20 08:37 Exam Vital signs and Labs for Last 24 Hours: Temp Pulse Resp BP Pulse Ox 98.1 F 66 20 128/78 96 10/28/20 08:31 10/28/20 11:00 10/28/20 11:00 10/28/20 11:00 10/28/20 11:00 Laboratory Results - last 24 hr 10/28/20 08:35: WBC 8.3, RBC 4.63, Hgb 14.3, Hct 43.0, MCV 92.8, MCH 30.8, MCHC 33.2, RDW 13.0, Plt Count 259, MPV 7.5, Neut % (Auto) 58.5, Lymph % (Auto) 31.4, [place] % (Auto) 5.7, Eos % (Auto) 3.5, Baso % (Auto) 1.0, Neut # (Auto) 4.8, Lymph # (Auto) 2.6, [place] # (Auto) 0.5, Eos # (Auto) 0.3, Baso # (Auto) 0.1 10/28/20 08:35: Sodium 134 L, Potassium 3.8, Chloride 101, Carbon Dioxide 25, Anion Gap 11.8, BUN 13, Creatinine 0.90
[2020-10-28 11:52] LABS: Coronavirus 19 IgG Antibody Negative (Negative); Coronavirus 19 IgM Antibody Negative (Negative)
--- NOTE | 2020-10-28 12:20 | PC.NURSE ---
contacted housekeeping staff to check on status of admission on pt.
[2020-10-28 12:44] LABS: Troponin I < 0.01 ng/ml (0.00-0.034)
--- NOTE | 2020-10-28 12:48 | PC.NURSE ---
contacted second floor give report, floor steward/stewardess states she will have WilliamRN call me
--- NOTE | 2020-10-28 13:07 | PC.NURSE ---
report given to William Delgado RN at this time
--- NOTE | 2020-10-28 13:26 | HMH.PHAVTE ---
[facility] Pharmacy VTE Monitoring - Patient Demographics Admission date: 10/28/20 Report Date: 10/28/20 Time: 13:26 Allergies/Adverse Reactions: Patient Allergies No Known Allergies Allergy (Verified 10/28/20 08:37) Height: 1.78 m Weight: 88.451 kg Patient Problems: Current Active Problems Syncope (Acute) Parkinsons disease (Acute) Syncope (Acute) GERD without esophagitis (Acute) CAD (coronary artery disease), [place] coronary artery (Acute) Stented coronary artery (Acute) Right bundle branch block (Acute) Bifascicular block (Acute) - VTE Risk Labs: VTE Related Lab Results Hgb 14.3 g/dL (14.1-18.0) 10/28/20 08:35 Hct 43.0 % (42.0-52.0) 10/28/20 08:35 Plt Count 259 K/mm3 (142-424) 10/28/20 08:35 BUN 13 mg/dl (9-20) 10/28/20 08:35 Creatinine 0.90 mg/dl (0.66-1.25) 10/28/20 08:35 Estimated Creat Clear 88 mL/min (50-200) 10/28/20 08:35 - Prophylaxis VTE Prophylaxis Ordered?: Yes Types of VTE Prophylaxis: TEDS Knee High Location of Applied Device: Bilateral Lower Extremeties
--- NOTE | 2020-10-28 14:04 | PC.NURSE ---
MED REC NOT COMPLETED AT THIS TIME, TO BRING IN HOME MEDS THIS AFTERNOON.
[2020-10-28 16:33] LABS: Troponin I < 0.01 ng/ml (0.00-0.034)
--- NOTE | 2020-10-28 17:26 | HMH.HP ---
*Admission Date: 10/28/20 *Chief complaint: Syncope *History of present illness: This is a 70-year-old white gentleman who presented to the emergency department with complaints of syncope. The patient states that he and his were on his way here to [facility] for an appointment with Dr. Rees in the cardiology clinic. While he was riding in the passenger seat of the car on the way here he began to feel flushed and did not feel well. His states that when she pulled into the parking lot he suddenly passed out and went unresponsive. She states that he got really clammy and turned crespo. She ran into the hospital to get help and when she came back out to the car she was able to shake him awake. She states that he lost consciousness. He had no convulsions. He did not urinate or defecate on himself. He denies any chest pain or pressure. He denies any shortness of breath or edema. He denies any fever, chills, nausea, vomiting, diarrhea, PND or orthopnea. He was admitted in August for similar symptoms. At that time the patient had a right bundle branch block as well as a bifascicular block. He was being worked up for possible pacemaker implant but after having a left cardiac catheterization where he needed stenting to his LAD the pacemaker placement was canceled to see if his symptoms improved. The patient has had recurrent syncope in the setting of right bundle branch block and a bifascicular block. [facility] History I have reviewed the patient's past medical history: Yes Medical History: Reports:: Coronary Artery Disease, Gastroesophageal Reflux Disease(GERD), Heart Murmur, Hyperlipidemia, Hypertension Denies:: Cancer, Diabetes Mellitus Type 1, Diabetes Mellitus Type 2, Internal Pacemaker, MRSA, Seizures *Have you ever received a pneumonia vaccine?: No *Have you received a flu vaccine this season?: Yes Laterality Cases: Bilateral: Tonsillectomy Other Surgeries: Yes: Cardiac Catheterization, Colonoscopy, Coronary Stent. No: Pacemaker Amputation: No Fractures: No - *Social History Last grade of school completed: Advanced degree Smoking Status: Never smoker Alcohol Intake: never Alcohol Intake Frequency:: holidays/special occasions only Substance Use Type: denies use *Occupational Status:: employed Housing: house Household Members: spouse *Travel in the last 8 weeks: None Family Hx:: Cancer, Hyperlipidemia, Hypertension Review of Systems - Review of Systems Review of systems:: pertinent systems reviewed and negative unless documented below - *Neurologic Denies abnormal walking, Denies abnormal hearing, Denies abnormal speech, Denies seizure-like activity Meds Home Medications Medication Instructions Recorded Confirmed Type Omeprazole [Omeprazole 20mg 20 mg PO DAILY 11/08/19 10/28/20 History Capsule] Primidone [Mysoline 50mg tablet] 50 mg PO BID 09/21/20 10/28/20 History Ropinirole HCl [Ropinirole ER] 2 mg PO BID 09/21/20 10/28/20 History Tamsulosin HCl [Flomax 0.4mg 0.4 mg PO HS 09/21/20 10/28/20 History capsule] Aspirin [Aspirin 81mg EC Tab] 81 mg PO DAILY 10/28/20 10/28/20 History Atorvastatin Calcium [Lipitor 40mg 40 mg PO HS 10/28/20 10/28/20 History Tablet*] Irbesartan [Avapro 75mg 75 mg PO DAILY 10/28/20 10/28/20 History tablet] Prasugrel HCl [Effient 10mg tablet] 10 mg PO DAILY 10/28/20 10/28/20 History Allergies Allergy/AdvReac Type Severity Reaction Status Date / Time No Known Allergies Allergy Verified 10/28/20 08:37 Exam Vital signs and Labs for Last 24 Hours: Temp Pulse Resp BP Pulse Ox 98.1 F 90 16 132/86 98 10/28/20 13:08 10/28/20 13:08 10/28/20 13:08 10/28/20 13:08 10/28/20 12:58 Laboratory Results - last 24 hr 10/28/20 08:35: WBC 8.3, RBC 4.63, Hgb 14.3, Hct 43.0, MCV 92.8, MCH 30.8, MCHC 33.2, RDW 13.0, Plt Count 259, MPV 7.5, Neut % (Auto) 58.5, Lymph % (Auto) 31.4, [place] % (Auto) 5.7, Eos % (Auto) 3.5, Baso % (Auto) 1.0,
--- NOTE | 2020-10-28 19:03 | PC.NURSE ---
HE IS AO*4, ABLE TO MAKE NEEDS KNOWN TO STAFF, TOLERATING RA WELL WITH NO C/O SOA, PT DENIES PAIN AND N/V/D, HE IS ABLE TO AMBULATE PER SELF, PT DENIES SYNCOPE SINCE ARRIVING TO FLOOR, MED REC NOT COMPLETED STILL WAITING FOR HOME MEDS TO BE BROUGHT IN, PT TO HAVE CARDIOLOGY CONSULT TOMORROW WITH POSSIBLE PACEMAKER, NO NEEDS AT THIS TIME.
[2020-10-29] VITALS (15 sets, daily range): BP systolic 72–149; BP diastolic 42–87; PULSE 70–102; RESP 16–20; TEMP 36.5–36.9; O2SAT 93–99; BMI 26.6
--- NOTE | 2020-10-29 | IR_ITS ---
APPROVED REPORT Patient Location: [facility] Attendant: BOB Londono RT (R) PROCEDURES 1. Pocket formation for Permanent Pacemaker Placement. 2. Placement of an atrial sensing and pacing coil into the right atrial appendage. 3. Placement of a ventricular sensing and pacing coil in the right ventricular apex. 4. Permanent Pacemaker Placement. INDICATION Right Bundle Branch Block, Bifasicular Block with Syncope Informed consent was obtained prior to the procedure. COMPLICATIONS None Estimated Blood Loss: Less than 10 mls TECHNIQUE 1% Lidocaine with epinephrine used to anesthetized the left anterior aspect of the chest. Scalpel was used to make the initial cutaneous incision while electrocautery was used to dissect down tinto the fascia. The fascia was lifted off the pectoralis muscle and digitally manipulated creating a pocket for the pacemaker. The patient was then placed in Trendelenburg position and the subclavian vein was accessed twice via the Selinger technique, there are two wires in the vein. A 6 [place] sheath was placed under fluoroscopic guidance into the subclavian vein over one of the wires while keeping the other wire in place within the subclavian vein. The dilator was removed from the sheath. Using fluoroscopic guidance, the ventricular lead was placed into the right ventricular apex, screwed and secured into place. Electronic interrogation proved acceptable thresholds and voltage within the lead. Using 3-0 silk, the ventricular lead was then secured into place. Lead was secured to the facia using the 3-0 silk. Following this, the sheath was pealed away. An additional 6 [place] fresh sheath and dilator was placed over the existing wire. Using fluoroscopic guidance, the atrial lead was the placed into the right atrial appendage and screwed and secured in place. Electrical interrogation demonstrated acceptable thresholds and voltage number. The atrial lead was then secured into place using 3-0 silk. 1 gram of Ancef was used to flush the pocket. Following the pacemaker generator being secured to the fascia and in place, Monocryl was used to close the subcutaneous layers while renee were used to close the cutaneous layer. A pressure dressing was placed and the patient was transferred to the postop holding area in stable condition for postoperative care. INTERROGATION Generator Model number: [employer] JUAN JOSÉ MONTES IS-1, L311 Generator Serial number: [id number] Atrial lead model number: BERNYITY+ IS-1 52CM, 7841 Atrial lead serial number: [id number] P-wave: 3.5mV Impedence: 610 ohms Threshold: 0.5V@0.4ms Right Ventricular lead model number: ALISHAEVITY+ IS-1 59CM, 7842 Right Ventricular lead serial number: [id number] R-wave: 8.5mV Impedence: 1200 ohms Threshold: 0.4V@0.4ms Pacing Parameters: Mode: DDDR Base/Max Track: 60ppm/130ppm RYTHMIQ: AAI with VVI Backup No diaphragmatic stimulation at 10 volts. IMPRESSION 1. Successful Pocket formation for Permanent Pacemaker Placement. 2. Successful Placement of an atrial sensing and pacing coil into the right atrial appendage. 3. Successful Placement of a ventricular sensing and pacing coil in the right ventricular apex. 4. Successful Permanent Pacemaker Placement. PLAN 1. Post op wound care, follow up office visit Electronically signed by : Fran Rees, 10/30/2020 12:22:44
--- NOTE | 2020-10-29 06:14 | PC.NURSE ---
Pt a&OX4. lungs CTA. pt denies pain or SOA. NSR w IVCD on tele. pt has slept well t/o shift.
--- NOTE | 2020-10-29 07:01 | HMH.ACPN2 ---
Internal Medicine - PN: Subj *Date: 10/29/20 *Time: 08:47 Interval history: Mr. He had no further episodes overnight. Denies any palpitations, dizziness, syncope. N.p.o. since midnight. Other than being somewhat thirsty, feels at baseline today. Planning for pacemaker placement. Exam Vital signs and Labs for Last 24 Hours: Temp Pulse Resp BP Pulse Ox 98.1 F 84 16 115/72 99 10/29/20 04:00 10/29/20 04:00 10/29/20 04:00 10/29/20 04:00 10/29/20 04:00 Laboratory Results - last 24 hr 10/28/20 08:35: WBC 8.3, RBC 4.63, Hgb 14.3, Hct 43.0, MCV 92.8, MCH 30.8, MCHC 33.2, RDW 13.0, Plt Count 259, MPV 7.5, Neut % (Auto) 58.5, Lymph % (Auto) 31.4, [place] % (Auto) 5.7, Eos % (Auto) 3.5, Baso % (Auto) 1.0, Neut # (Auto) 4.8, Lymph # (Auto) 2.6, [place] # (Auto) 0.5, Eos # (Auto) 0.3, Baso # (Auto) 0.1 10/28/20 08:35: Sodium 134 L, Potassium 3.8, Chloride 101, Carbon Dioxide 25, Anion Gap 11.8, BUN 13, Creatinine 0.90, Estimated Creat Clear 88, Estimated GFR 84, Est GFR ( Amer) 102, Glucose 190 H, Calcium 9.0 10/28/20 08:35: Magnesium 2.2, Troponin I < 0.01 10/28/20 08:35: D-Dimer 0.52 10/28/20 10:05: SARS-CoV-2 IgG Ab (Rapid) Negative, SARS-CoV-2 IgM Ab (Rapid) Negative 10/28/20 12:15: Troponin I < 0.01 10/28/20 16:15: Troponin I < 0.01 I & O for Last 24 hours: Intake & Output 10/26/20 10/27/20 10/28/20 10/29/20 23:59 23:59 23:59 23:59 Intake Total 1220 / 1220 Balance 1220 / 1220 Weight 88.649 kg 89.074 kg Narrative: - *Routine HEENT Exam Head: Present: normocephalic Eye: Present: EOMI, PERRL ENT: Present: mucous membranes moist - *Routine Neck Exam Present: supple. Absent: lymphadenopathy - *Routine Respiratory Exam Present: CTA bilaterally - *Routine Cardiovascular Exam Present: RRR - *Routine Abdominal Exam Present: soft, normoactive bowel sounds. Absent: tenderness - *Routine Extremities Exam Absent: cyanosis, clubbing, edema - *Routine Skin Exam Present: warm. Absent: rash - *Routine Neurological Exam Present: alert, oriented X3 Assessment and Plan (1) Syncope Status: Acute Category: Medical Code(s): R55 - Syncope and collapse (2) Right bundle branch block Status: Acute Category: Medical Code(s): I45.10 - Unspecified right bundle-branch block (3) Bifascicular block Status: Acute Category: Medical Code(s): I45.2 - Bifascicular block (4) CAD (coronary artery disease), [place] coronary artery Status: Acute Qualifiers: [place] vs. transplanted heart: [place] heart Associated angina: without angina Qualified Code(s): I25.10 - Atherosclerotic heart disease of [place] coronary artery without angina pectoris Category: Medical Code(s): I25.10 - Atherosclerotic heart disease of [place] coronary artery without angina pectoris (5) GERD without esophagitis Status: Acute Category: Medical Code(s): K21.9 - Gastro-esophageal reflux disease without esophagitis (6) Parkinsons disease Status: Acute Category: Medical Code(s): G20 - Parkinson's disease (7) Stented coronary artery Status: Acute Category: Surgical Code(s): Z95.5 - Presence of coronary angioplasty implant and graft - Assessment and plan all Dx Assessment and Plan for all problems:: 70-year-old gentleman with history of Parkinson's, bifascicular block, presented with syncope to the ER. Treated for his syncope recently with left heart cath and stent placement. Was due for follow-up yesterday with cardiology when he had a syncopal episode on the way to the office. Patient feels well this morning. No further events overnight. -Cardiology consulted, appreciate their recommendations. Planning for pacemaker placement today - continue to monitor overnight. - no change to meds at this time - Cardiac diet after surgery - Full code
[2020-10-29 07:31] LABS: Basophils # 0.1 K/mm3 (0-0.2); Basophils % 0.9 % (0.1-2.0); Eosinophils # 0.3 K/mm3 (0.0-0.4); Eosinophils % 3.4 % (0.1-12.0); Hematocrit 42.3 % (42.0-52.0); Hemoglobin 14.1 g/dL (14.1-18.0); Lymphocytes # 1.9 K/mm3 (0.7-4.5); Lymphocytes % 23.7 % (10-50); Mean Corpuscular HGB Conc 33.4 g/dL (31.8-35.4); Mean Corpuscular Hemoglobin 30.5 pg (27.0-31.2); Mean Corpuscular Volume 91.3 fl (80-94); Mean Platelet Volume 7.6 fl (7.4-10.4); Monocytes # 0.5 K/mm3 (0.1-1.0); Monocytes % 6.6 % (1.7-9.3); Neutrophils # 5.2 K/mm3 (1.8-7.8); Neutrophils % 65.3 % (37.0-80.0); Platelet Count 218 K/mm3 (142-424); Red Blood Count 4.63 M/mm3 (4.60-6.20); White Blood Count 7.9 K/mm3 (4.8-10.8)
[2020-10-29 07:35] LABS: Chloride 100 mmol/L (98-107)
[2020-10-29 07:36] LABS: Potassium 4.4 mmoL/L (3.5-5.1); Sodium 135 mmol/L (136-145)
[2020-10-29 07:38] LABS: Blood Urea Nitrogen 14 mg/dl (9-20)
[2020-10-29 07:39] LABS: Anion Gap 12.4 mEq/L (5-15); Calcium 9.1 mg/dl (8.4-10.2); Carbon Dioxide 27 mmol/L (22.0-30.0); Creatinine Clearance Estimated 89 mL/min (50-200); Estimated Glomerular Filt Rate 74 ml/min (>60); GFR (African American) 90 ML/MIN (>60); Glucose 144 mg/dl (74-100)
--- NOTE | 2020-10-29 08:56 | HMH.PNCARD ---
Subjective Date: 10/29/20 Time: 08:45 Principal diagnosis: syncope Interval history: This is a 70-year-old white gentleman who presented to the emergency department with a syncopal episode in the parking lot. This is the second time that the patient has had a syncopal event within approximately a month. He states that he feels flushed and then passes out. The patient does have an underlying right bundle branch block as well as a bifascicular block. Because of this advanced conduction delay Dr. Rees has recommended that the patient have a permanent pacemaker implanted as this is most likely the cause of his syncope. This morning the patient denies any chest pain or pressure. He denies any shortness of breath or edema. He denies any fever, chills, nausea, vomiting, diarrhea, PND or orthopnea. Exam Vital signs and Labs for Last 24 Hours: Temp Pulse Resp BP Pulse Ox 98.4 F 80 17 123/76 96 10/29/20 08:00 10/29/20 08:00 10/29/20 08:00 10/29/20 08:00 10/29/20 08:00 Laboratory Results - last 24 hr 10/28/20 08:35: Troponin I < 0.01 10/28/20 08:35: D-Dimer 0.52 10/28/20 10:05: SARS-CoV-2 IgG Ab (Rapid) Negative, SARS-CoV-2 IgM Ab (Rapid) Negative 10/28/20 12:15: Troponin I < 0.01 10/28/20 16:15: Troponin I < 0.01 10/29/20 07:03: WBC 7.9, RBC 4.63, Hgb 14.1, Hct 42.3, MCV 91.3, MCH 30.5, MCHC 33.4, RDW 13.0, Plt Count 218, MPV 7.6, Neut % (Auto) 65.3, Lymph % (Auto) 23.7, [place] % (Auto) 6.6, Eos % (Auto) 3.4, Baso % (Auto) 0.9, Neut # (Auto) 5.2, Lymph # (Auto) 1.9, [place] # (Auto) 0.5, Eos # (Auto) 0.3, Baso # (Auto) 0.1 10/29/20 07:03: Sodium 135 L, Potassium 4.4, Chloride 100, Carbon Dioxide 27, Anion Gap 12.4, BUN 14, Creatinine 1.00, Estimated Creat Clear 89, Estimated GFR 74, Est GFR ( Amer) 90, Glucose 144 H D, Calcium 9.1 I & O for Last 24 hours: Intake & Output 10/26/20 10/27/20 10/28/20 10/29/20 23:59 23:59 23:59 23:59 Intake Total 1220 / 1220 0 / 0 Balance 1220 / 1220 0 / 0 Weight 195 lb 7 oz 196 lb 6 oz Narrative: Monitor strip shows sinus rhythm with right bundle branch block and a rate of 84. - Constitutional no acute distress, average body habitus - *Routine HEENT Exam Head: Present: normocephalic, atraumatic Eye: Present: EOMI, PERRL ENT: Present: mucous membranes moist - *Routine Neck Exam Present: supple, full ROM, normal carotid upstroke. Absent: JVD, carotid bruit, lymphadenopathy - *Routine Respiratory Exam Present: CTA bilaterally - *Routine Cardiovascular Exam Present: RRR, Normal S1, Normal S2. Absent: murmur - *Routine Abdominal Exam Present: soft, normoactive bowel sounds. Absent: tenderness, distended - *Routine Extremities Exam Present: full ROM, pulses intact, normal capillary refill. Absent: cyanosis, clubbing, edema - *Routine Skin Exam Present: intact, warm. Absent: erythema, lesions, rash - *Routine Neurological Exam Present: alert, oriented X3, CN II-XII intact. Absent: sensory deficit, motor deficit Progress Note: A&P (1) Syncope Status: Acute (2) Right bundle branch block Status: Acute (3) Bifascicular block Status: Acute (4) CAD (coronary artery disease), [place] coronary artery Status: Acute (5) GERD without esophagitis Status: Acute (6) Parkinsons disease Status: Acute (7) Stented coronary artery Status: Acute Assessment and Plan for All Diagnoses:: Plan: 1. Patient was admitted to the hospital after syncopal episode. This is a second episode of syncope he has had in approximately 1 month. Patient does have a right bundle branch and bifascicular block. Due to this advanced conduction delay and high grade AV block, we will plan to proceed with permanent pacemaker placement today as this is most likely the cause of his syncope. 2. The patient has been educated on risk and benefits of proceeding with permanent pacemaker. The patient verbalized understanding and is agreeable in proceeding with the pro
--- NOTE | 2020-10-29 09:42 | HMH.PHAINT ---
Medication reconciliation completed using pharmacy claims data and patient/spouse interview.
--- NOTE | 2020-10-29 11:49 | XR_ITS ---
PROCEDURE: XR CHEST PORTABLE CLINICAL HISTORY: Confirm pacemaker/AID placement COMPARISON: CT [facility] CT CHEST W/O CONTRAST from 09/02/2016 CR XR CHEST PORTABLE from 09/21/2020 FINDINGS: Bipolar pacemaker has been placed by the left subclavian approach with right atrial and right ventricular leads present which appear to be in good position. There is no evidence of pneumothorax. The lungs are clear without infiltrates, suspicious nodules, or pleural effusions. No acute bony abnormalities. IMPRESSION: Status post bipolar pacemaker placement without radiographic evidence complication. Dictated by: Vargas Alvarenga MD 10/29/2020 12:22 Vargas Alvarenga MD in [place] 10/29/2020 12:22
--- NOTE | 2020-10-29 12:01 | HMH.ANESCL ---
[facility] Anesthesia Checklist - Patient Identification Patient Identification: Arm Band, Verbal (Name & ) - Structural Data Admitted From: Home Planned Operative Procedure/s: pacemaker Consent for Planned Operative Procedure(s) Verified: Yes Verified Documents: History and Physical - NPO Status Verified Time NPO: 00:00 - Chart Verification Results Verified: CBC, BMP - Additional verifications Patient : No Anesthesia Reactions: No Hx Blood Transfusions: No Blood Transfusion Reaction: No Cephalosporin Allergy: No Previous Colonoscopy: No - Cardiovascular Assessment Heart Sounds: S1 & S2 Pulse Strength: Baseline Pulse Rhythm: Regular Peripheral Edema: No - Airway Assessment C-Spine Mobility Assessed: Yes TMJ Mobility Assessed: Yes Dentition: Good Dentition - Neurological Assessment Level of Consciousness: Awake, Alert, Appropriate Hx Seizures: No Numbness or tingling in extremities: No - Anesthesia Plan Anesthesia Risk discussed: Yes Anesthesia Plan: Verified ASA Class: III Anesthesia Type: [facility] History I have reviewed the patient's past medical history: Yes Medical History: Reports:: Coronary Artery Disease, Gastroesophageal Reflux Disease(GERD), Heart Murmur, Hyperlipidemia, Hypertension Denies:: Cancer, Diabetes Mellitus Type 1, Diabetes Mellitus Type 2, Internal Pacemaker, MRSA, Seizures *Have you ever received a pneumonia vaccine?: No *Have you received a flu vaccine this season?: Yes Anesthesia experience/problems:: none Laterality Cases: Bilateral: Tonsillectomy Other Surgeries: Yes: Cardiac Catheterization, Colonoscopy, Coronary Stent. No: Pacemaker Amputation: No Fractures: No - *Social History Last grade of school completed: Advanced degree Smoking Status: Never smoker Alcohol Intake: never Alcohol Intake Frequency:: holidays/special occasions only Substance Use Type: denies use *Occupational Status:: employed Housing: house Household Members: spouse *Travel in the last 8 weeks: None Family Hx:: Cancer, Hyperlipidemia, Hypertension
--- NOTE | 2020-10-29 18:27 | HMH.DCSUM ---
General - General Admission date:: 10/28/20 Discharge date: 10/29/20 HPI HPI: This is a 70-year-old white gentleman who presented to the emergency department with complaints of syncope. The patient states that he and his were on his way here to [facility] for an appointment with Dr. Rees in the cardiology clinic. While he was riding in the passenger seat of the car on the way here he began to feel flushed and did not feel well. His states that when she pulled into the parking lot he suddenly passed out and went unresponsive. She states that he got really clammy and turned crespo. She ran into the hospital to get help and when she came back out to the car she was able to shake him awake. She states that he lost consciousness. He had no convulsions. He did not urinate or defecate on himself. He denies any chest pain or pressure. He denies any shortness of breath or edema. He denies any fever, chills, nausea, vomiting, diarrhea, PND or orthopnea. He was admitted in August for similar symptoms. At that time the patient had a right bundle branch block as well as a bifascicular block. He was being worked up for possible pacemaker implant but after having a left cardiac catheterization where he needed stenting to his LAD the pacemaker placement was canceled to see if his symptoms improved. The patient has had recurrent syncope in the setting of right bundle branch block and a bifascicular block. Hospital Course Hospital Course: 70-year-old gentleman admitted to the hospital for syncopal episode. As this was his second episode in approximately a month, previous when treated with cardiac cath and stenting of flow-limiting lesion, decision made to admit for pacemaker placement. Cardiology consulted, appreciate their assistance in caring for patient. Pacemaker placed without difficulty and left upper chest. Procedure tolerated well. No further events during admission. No change to home medications as he is already on goal-directed therapy. Vitals remained stable, no complications after procedure, medically stable for discharge home with close follow-up with cardiology. Patient seen after placement of pacemaker, had no acute complaints other than some incision site soreness. Denies shortness of breath, headache, anginal chest pain, nausea or vomiting. Discharged in care of Objective Vital signs: Temp Pulse Resp BP Pulse Ox 98.0 F 94 H 19 129/71 96 12/03/20 16:00 10/29/20 16:00 10/29/20 16:00 10/29/20 16:00 10/29/20 16:00 Narrative: - *Routine HEENT Exam Head: Present: normocephalic Eye: Present: EOMI, PERRL ENT: Present: mucous membranes moist - *Routine Neck Exam Present: supple. Absent: lymphadenopathy - *Routine Respiratory Exam Present: CTA bilaterally - *Routine Cardiovascular Exam Present: RRR; Chest with newly placed pacemaker in left upper pectoralis. Lesion minimally tender, no significant bruising. Surgical bandage over incision with scant bloody discharge. - *Routine Abdominal Exam Present: soft, normoactive bowel sounds. Absent: tenderness - *Routine Extremities Exam Absent: cyanosis, clubbing, edema - *Routine Skin Exam Present: warm. Absent: rash - *Routine Neurological Exam Present: alert, oriented X3 Results Labs on day of discharge: Labs from last 24 hours 10/29/20 10/29/20 07:03 07:03 WBC 7.9 RBC 4.63 Hgb 14.1 Hct 42.3 MCV 91.3 MCH 30.5 MCHC 33.4 RDW 13.0 Plt Count 218 MPV 7.6 Neut % (Auto) 65.3 Lymph % (Auto) 23.7 [place] % (Auto) 6.6 Eos % (Auto) 3.4 Baso % (Auto) 0.9 Neut # (Auto) 5.2 Lymph # (Auto) 1.9 [place] # (Auto) 0.5 Eos # (Auto) 0.3 Baso # (Auto) 0.1 Sodium 135 L Potassium 4.4 Chloride 100 Carbon Dioxide 27 Anion Gap 12.4 BUN 14 Creatinine 1.00 Estimated Creat Clear 89 Estimated GFR 74 Est GFR ( Amer) 90 Glucose 144 H D
--- NOTE | 2020-10-29 19:00 | PC.NURSE ---
A&OX4. PT HAS TOLERATED ROOM AIR WELL THROUGHOUT SHIFT. RESPIRATIONS REGULAR AND UNLABORED. LUNG SOUNDS BILATERALLY CLEAR. ACTIVE BOWEL SOUNDS HEARD IN ALL 4 QUADRANTS. SOFT AND NONTENDER ABDOMEN. NO REPORTS OF BM. PT VOIDS INDEPENDENTLY IN RESTROOM. STEADY GAIT NOTED. HAND SNOWBOARDER EQUAL. +2 PULSES NOTED THROUGHOUT. NO EDEMA NOTED. PT HAD PACEMAKER PLACED TODAY AND TOLERATED WELL. HAS REMAINED AT BEDSIDE THROUGHOUT SHIFT. NO REPORTS OF PAIN THROUGHOUT SHIFT. PT IS CURRENTLY LYING IN BED RESTING. BED IN LOWEST POSITION. CALL LIGHT WITHIN REACH. VSS. WILL CONTINUE TO MONITOR.
[2020-12-28 08:30] LABS: POC Glucose,Bedside 167 (70-110)
== END 2020-10-29 19:18 | disposition home or self-care (01) ==
LOC: ER 12:26 → 2ND 13:24
PROVIDERS: Internal Medicine; Admitting Provider Internal Medicine Adolescent Medicine; Emergency Provider Emergency Medicine; PCP Internal Medicine Adolescent Medicine; Visit Provider Internal Medicine Adolescent Medicine
DX: I45.10 Unspecified right bundle-branch block (principal); I45.2 Bifascicular block; I25.10 Atherosclerotic heart disease of native coronary artery without angina pectoris; I11.0 Hypertensive heart disease with heart failure; E78.5 Hyperlipidemia, unspecified; Z79.01 Long term (current) use of anticoagulants; Z79.82 Long term (current) use of aspirin; G20 Parkinson's disease; Z95.5 Presence of coronary angioplasty implant and graft; K21.9 Gastro-esophageal reflux disease without esophagitis
CPT/HCPCS: 33208; 36415; 71045; 80048; 82962; 83735; 84484; 85025; 85378; 86328; 93005; 99284; C1785; C1898; G0378

== ENCOUNTER 2021-02-08 11:34 | Emergency (ER) | payer MEDICARE, OTHER, SELFPAY ==
[2021-02-08 11:40] VITALS: BP 129/73; PULSE 100; RESP 23; TEMP 36.6; O2SAT 98; BMI 27.1
--- NOTE | 2021-02-08 11:50 | XR_ITS ---
PROCEDURE: XR ANKLE RT MIN 3V CLINICAL INDICATION: INJURY Posttraumatic pain COMPARISON: No exams were available for comparison FINDINGS: Nondisplaced fracture involves the distal shaft of the fibula. The fracture line exits medially 2 cm above the ankle joint. The ankle mortise does not appear widened. Mild bony hypertrophy is present at the tip the medial malleolus and there is an well-circumscribed calcific density at the tip of the lateral malleolus at 3 mm and may be due to an old fracture or ununited ossification center. IMPRESSION: Nondisplaced distal fibular fracture Dictated by: Vargas Alvarenga MD 02/08/2021 12:28 Vargas Alvarenga MD in [place] 02/08/2021 12:28
--- NOTE | 2021-02-08 12:07 | HMH.EDUTC ---
[facility] [place]: Fracture Disposition: Home, Self-Care Condition on Discharge: Good Instructions: How To Perform RICE (Rest, Ice, Compress, Elevate) Additional Instructions: *RICE, Rest the extremity, Ice 15-20 minutes 3-4 times daily, Compress- wear the harjit wrap as discussed as much as possible to help reduce swelling and pain, Elevate the extremity when at rest *Harjit wrap is for support and help control swelling, use it except in the shower. Be sure that is not to tight but not to loose either *Elevate when resting *Ibuprofen every 6-8 hours as needed for pain an inflammation. If need something more can take Tylenol in between doses of Ibuprofen to help Immediately follow up with your family doctor for new or worsening of symptoms, or no noticeable improvement over the next 3-5 days Make sure to call Dr Zhu office and make appointment for follow up due to Syncopal eppisode Dr Goodman office will call you with appointment Use walker to get around and do not bear weight on foot Straight to ER if any life threatening symptoms Prescriptions: Walker [Walker, Standard] 1 each MISCELLANE DIRECTED #1 each Prescription Printed Referrals: Jaime Adler MD [Primary Care Provider] - As needed Ivania Goodman MD [Physician] - As needed (Office will call with appointment) Time of Disposition: 12:29 Medical Decision Making - Benjamin Inquiry Pt receiving controlled substance: No Benjamin was queried for this patient: No Vital Signs: 02/08/21 11:40 02/08/21 12:38 Temperature 97.8 F 97.8 F Temperature Source Oral Pulse Rate 100 H Pulse Rate [Right Brachial] 100 H Respiratory Rate 23 23 Blood Pressure 129/73 Blood Pressure [Right Arm] 129/73 Blood Pressure Mean [Right Arm] 91 Blood Pressure Source [Right Arm] Automatic Cuff Blood Pressure Position [Right Arm] Sitting 02 Sat by Pulse Oximetry 98 Oxygen Delivery Method Room Air - Radiology Data #1 Image(s): Ankle Image Reviewed: Yes I reviewed the patient's radiology image Non displaced Fracture right distal fibula - Physician Consults Physician Consulted: Rex Time: 12:27 Reason -: Orthopedic Eval/Care Comment/Response: Spoke with Dr Goodman and she viewed xray and agreed Advised to place him in boot, walker RICE and office will call with appointment [facility] [place] - General Stated complaint: [id number] fell injured right ankle Time Seen by Provider: 02/08/21 12:07 Mode of Arrival: Ambulatory Source of Information: Patient Limitations: No Limitations Description of Symptoms (Recalled from Triage Doc. by RN): PATIENT STATES ON MONDAY HE HAD A SYNCOPAL EPISODE AND FELL, INJURING HIS RIGHT ANKLE. HE STATES HE WAS SEEN IN [facility] FOR SYCOPAL EPISODE, BUT DID NOT REALIZE HE HAD INJURED HIS ANKLE UNTIL AFTER HE LEFT. HEENT Symptoms (Recalled from RN notes): No Resp Symptoms (Recalled from RN notes): No Skin Symptoms (Recalled from RN notes): No MS Symptoms (Recalled from RN notes): Yes Functional Status (Recalled from RN notes): WNL - History of Present Illness Provider Complaint: Patient states that he had a syncopal eppisode on Monday and fell and was seen and treated in the ER at [facility] States that he didnt realize he had hurt his right ankle until a day or so later he would have pain when he would try to walk on it - Related Data Home Medications Medication Instructions Recorded Confirmed Omeprazole [Omeprazole 20mg 20 mg PO DAILY 11/08/19 11/25/20 Capsule] Primidone [Mysoline 50mg tablet] 50 mg PO BID 09/21/20 11/25/20 Prasugrel HCl [Effient 10mg tablet] 10 mg PO DAILY 10/28/20 11/25/20 Ropinirole HCl 2 mg PO BID 10/29/20 11/25/20 Previous Rx's Medication Instructions Recorded aspirin 81 mg tablet,delayed 81 mg PO DAILY #30 tab 12/28/20 release atorvastatin 40 mg tablet 40 mg PO HS #30 tab 12/28/20 irbesartan 75 mg tablet 75 mg PO DAILY #30 tab 12/28/20 tamsulosin 0.4 mg cap
[2021-02-08 12:38] VITALS: BP 129/73; PULSE 100; RESP 23; TEMP 36.6; O2SAT 98
== END 2021-02-08 12:41 | disposition home or self-care (01) ==
PROVIDERS: Emergency Provider Nurse Practitioner; PCP Internal Medicine Adolescent Medicine
DX: S82.831A Other fracture of upper and lower end of right fibula, initial encounter for closed fracture (principal); W18.39XA Other fall on same level, initial encounter; R55 Syncope and collapse; I25.10 Atherosclerotic heart disease of native coronary artery without angina pectoris; G20 Parkinson's disease; I10 Essential (primary) hypertension; E78.5 Hyperlipidemia, unspecified; K21.9 Gastro-esophageal reflux disease without esophagitis; R01.1 Cardiac murmur, unspecified; Z95.0 Presence of cardiac pacemaker; Z95.5 Presence of coronary angioplasty implant and graft
CPT/HCPCS: 29515; G0463; 73610; 99202

== ENCOUNTER → 2021-04-14 07:55 | Day surgery (SDC) | payer MEDICARE, OTHER, SELFPAY ==
--- NOTE | 2021-04-14 | CA_ITS ---
APPROVED REPORT Channel Account Manager: CT Laterality: Bilateral Indications: Syncope Risk Factors Hyperlipidemia Doppler Spectral Velocity Analysis ECA (R) 75.40/11.20 cm/s ECA (L) 77.00/14.40 cm/s dICA (R) 62.60/21.40 cm/s dICA (L) 65.80/27.80 cm/s Yeny (R) 61.00/22.50 cm/s Yeny (L) 51.90/19.80 cm/s pICA (R) 54.50/21.40 cm/s pICA (L) 61.50/18.70 cm/s dCCA (R) 77.10/18.00 cm/s dCCA (L) 81.30/19.80 cm/s pCCA (R) 94.20/22.30 cm/s pCCA (L) 72.20/16.00 cm/s Vert (R) 32.20/5.50 cm/s Vert (L) 41.70/12.30 cm/s ICA/CCA 0.80 ICA/CCA 0.80 Findings Duplex evaluation demonstrates stenosis of the right proximal internal carotid artery <20%. Duplex evaluation demonstrates stenosis of the left proximal internal carotid artery <20%. Duplex evaluation demonstrates antegrade flow of the bilateral Vertebral Arteries. Conclusion Duplex evaluation demonstrates stenosis of the right proximal internal carotid artery <20%. Duplex evaluation demonstrates stenosis of the left proximal internal carotid artery <20%. Duplex evaluation demonstrates antegrade flow of the bilateral Vertebral Arteries. Electronically signed by : Vargas Alvarenga MD 04/14/2021 16:18:17
[2021-04-14 08:09] VITALS: BMI 27.8
--- NOTE | 2021-04-14 10:15 | HMH.TILT ---
Findings:: PROCEDURE: Tilt-Table Test INDICATION: Several episodes of syncope and near syncope over the past 6 months. BETA BLOCKERS: None PRE-TEST VS: BP 144/98, HR 71 with NSR, O2 Sats 97%. PROCEDURE SUMMARY: Patient was placed on the tilt table in a supine position with safety strap applied. He was connected to heart rate/rhythm, blood pressure and O2 sat monitors. Then, he was tilted into the upright position at 70 degrees for 35 minutes. He had no syncope, near syncope, or prodromal symptoms of syncope. He reported no symptoms or complaints. His vital signs remained stable with minimal change during the test. His lowest BP was 139/98, occurring after 25 minutes upright. His highest BP was 158/100, occurring immediately upon being raised into the upright position. Lowest HR was 77 bpm. Highest HR was 86 bpm, occurring after 35 minutes upright. Rhythm was normal sinus throughout. O2 sats were 95% or higher throughout. COMPLICATIONS: None CONCLUSION: Normal Tilt-Table Test
== END ==
PROVIDERS: PCP Internal Medicine Adolescent Medicine; Visit Provider Internal Medicine Adolescent Medicine
DX: R55 Syncope and collapse (principal); I25.10 Atherosclerotic heart disease of native coronary artery without angina pectoris; K21.9 Gastro-esophageal reflux disease without esophagitis; I10 Essential (primary) hypertension; E78.5 Hyperlipidemia, unspecified; G20 Parkinson's disease; Z79.82 Long term (current) use of aspirin; Z79.899 Other long term (current) drug therapy
CPT/HCPCS: 93660; 93880

== ENCOUNTER → 2022-11-10 09:35 | Outpatient (CLI) | payer MEDICARE, OTHER, SELFPAY ==
[2022-11-10 10:39] LABS: Alanine Aminotransferase 7 U/L (12-78); Albumin Level 3.8 g/dl (3.5-5.0); Alkaline Phosphatase 63 U/L (38-126); Aspartate Amino Transferase 18 U/L (17-59); Bilirubin,Direct 0.1 mg/dl (0.0-0.4); Bilirubin,Indirect 0.2 mg/dL (0.0-0.9); Bilirubin,Total 0.3 mg/dl (0.2-1.3); Bilirubin,Unconjugated 0.2 mg/dL (0.0-1.1); Chol/HDL Ratio 3.3 (1-3.5); Cholesterol 135 mg/dl (140-200); HDL Cholesterol 41 mg/dl (40-60); Total Protein,Serum 6.4 g/dl (6.3-8.2); Triglycerides 116 mg/dl (30-150); VLDL Cholesterol 23 mg/dL (0-40)
[2022-11-10 10:50] LABS: Direct LDL Cholesterol 69.73 mg/dL (100-129)
== END ==
PROVIDERS: PCP Internal Medicine Adolescent Medicine; Visit Provider Nurse Practitioner Family
DX: E11.9 Type 2 diabetes mellitus without complications (principal)
CPT/HCPCS: 36415; 80061; 80076